=== PATIENT | female | born 1995 | race African-American/Black ===

== ENCOUNTER 2017-10-02 18:57 | Emergency (ER) | payer BC ==
[2017-10-02] MEDS ORDERED: Acetaminophen 325 MG Tab PO ONE (19:44)
--- NOTE | 2017-10-02 19:50 | EDM.PDOC ---
<Stephany El - Last Filed: 10/02/17 19:38> ED HPI GENERAL MEDICAL PROBLEM - General Chief Complaint: Abdominal Pain Stated Complaint: LOWER ABDOMINAL PAIN Time Seen by Provider: 10/02/17 19:45 Source of Information: Reports: Patient History Limitations: Reports: No Limitations - History of Present Illness INITIAL COMMENTS - FREE TEXT/NARRATIVE: Patient comes in today for chief complaint of dysmenorrhea. Patient's hypogastric pain is described as cramping. She has not tried taking any medication or using a heating pad. She normally takes Tylenol for period pain, but did not take any today because the pain was more severe than usual. Nothing makes the pain worse and the pain does not radiated. Today is the first day of her menstrual cycle, her last menstrual cycle was 09/03/17. Her periods typically last five days but for the last two months her periods have lasted for three days. She denies fevers, chills, nausea, vomiting, , or back pain. Onset: Today Duration: Constant Location: Reports: Pelvis Quality: Reports: Other (cramping) Severity: Moderate Improves with: Reports: None Worsens with: Reports: None Associated Symptoms: Denies: Diaphoresis, Nausea/Vomiting Bilateral Lower Abdomen Pain Score (Numeric/FACES): 9 - Related Data Allergies Allergy/AdvReac Type Severity Reaction Status Date / Time No Known Allergies Allergy Verified 10/02/17 19:13 Home Meds: Home Meds . [No Known Home Meds] 10/02/17 [History] Past Medical History - Past Health History Medical/Surgical History: Denies Medical/Surgical History Social & Family History - Family History Family Medical History: Noncontributory - Tobacco Use Smoking Status *Q: Never Smoker - Caffeine Use Caffeine Use: Reports: None - Recreational Drug Use Recreational Drug Use: No ED ROS GENERAL - Review of Systems Constitutional: Reports: No Symptoms Respiratory: Reports: No Symptoms Cardiovascular: Reports: No Symptoms GI/Abdominal: Reports: Abdominal Pain. Denies: Black Stool, Constipation, Diarrhea, Nausea, Vomiting : Reports: Pain. Denies: Dysuria, Flank Pain, Irregular Menses Musculoskeletal: Denies: Back Pain ED EXAM, GI/ABD - Physical Exam Exam Limited By: No Limitations General Appearance: Alert, WD/WN, No Apparent Distress Respiratory/Chest: No Respiratory Distress, Lungs Clear, Normal Breath Sounds, No Accessory Muscle Use Cardiovascular: Normal Peripheral Pulses, Regular Rate, Rhythm, No Edema, No Murmur, No Rub GI/Abdominal Exam: Normal Bowel Sounds, Soft, Non-Tender, No Distention Course - Vital Signs Last Recorded V/S: Last Vital Signs Temp 98.3 F 10/02/17 19:11 Pulse 73 10/02/17 19:11 Resp 18 10/02/17 19:11 BP 134/89 10/02/17 19:11 Pulse Ox 100 10/02/17 19:11 - Orders/Labs/Meds Orders: Active Orders 24 hr Category Date Time Status HCG QUALITATIVE,URINE [URCHEM] Stat Lab 10/02/17 19:54 Ordered UA W/MICROSCOPIC [URIN] Stat Lab 10/02/17 19:54 Ordered Labs: Laboratory Tests 10/02/17 10/02/17 Range/Units 19:54 19:54 Urine Color Yellow (Yellow) Urine Appearance Slt cloudy H (Clear) Urine pH 7.5 (5.0-8.0) Ur Specific [place] 1.025 (1.005-1.030) Urine Protein Negative (Negative) Urine Glucose (UA) Negative (Negative) Urine Ketones Negative (Negative) Urine Occult Blood 2+ H (Negative) Urine Nitrite Negative (Negative) Urine Bilirubin Negative (Negative) Urine Urobilinogen 0.2 (0.2-1.0) Ur Leukocyte Esterase Negative (Negative) Urine RBC 0-5 (0-5) /hpf Urine WBC Not seen (0-5) /hpf Ur Epithelial Cells 0-5 (0-5) /hpf Urine Bacteria Rare (FEW) /hpf Urine Mucus Not seen (FEW) /hpf Urine HCG, Qual Negative (NEGATIVE) Meds: Medications Discontinued Medications Generic Name Dose Route Start Last Admin Trade Name Freq PRN Reason Stop Dose Admin Acetaminophen 975 mg 10/02/17 19:44 10/02/17 19:52 Tylenol PO 10/02/17 19:45 975 mg NOW ONE Administration Ketorolac Tromethamine 60 mg 10/02/17 20:25 10/02/17 21:08 Toradol IM 10/02/17 20:26 60 mg ONETIME ONE Administration Departure - Departure Disposition: Home, Self-Care 01 Clinical Impression: Dysmenorrhea - Discharge Information Instructions: Dysmenorrhea, [id number] Referrals: PCP,None [Primary Care Provider] - Forms: ED Department Discharge, ED Return to Work/School Form Additional Instructions: recommend [id number] ibuprofen or Tylenol as needed for pain relief. Recommend using heat such as a heating right sack for additional relief. Follow-up with your primary care provider as needed for severe menstrual cramps. Please return to ER if your symptoms change or worsen. - My Orders Last 24 Hours: My Active Orders 10/02/17 19:54 HCG QUALITATIVE,URINE [URCHEM] Stat UA W/MICROSCOPIC [URIN] Stat - Assessment/Plan Last 24 Hours: My Active Orders 10/02/17 19:54 HCG QUALITATIVE,URINE [URCHEM] Stat UA W/MICROSCOPIC [URIN] Stat <Nano Khan - Last Filed: 10/02/17 22:21> ED HPI GENERAL MEDICAL PROBLEM - History of Present Illness INITIAL COMMENTS - FREE TEXT/NARRATIVE: I have seen the patient and agree with the HPI as documented by EMIL [place] ED ROS GENERAL - Review of Systems Review Of Systems: See Below ED EXAM, GI/ABD - Physical Exam Exam: See Below GI/Abdominal Exam: Other (no pain at [place] point) Neurological: Alert, Normal Cognition Psychiatric: Normal Affect, Normal Mood Skin Exam: Warm, Dry, Normal Color Course - Re-Assessments/Exams Free Text/Narrative Re-Assessment/Exam: 10/02/17 21:31 I have seen the patient and agree with the HPI, ROS and PE as documented by Stephany STEIN. Checked on the patient. She is doing much better. Will discharge home at this time. Discharge instructions documented. Departure - Departure Time of Disposition: 21:31 Condition: Fair
[2017-10-02] MEDS ORDERED: Ketorolac 60 MG/2 ML SDV IM ONE (20:25)
== END 2017-10-02 21:45 | disposition home or self-care (01) ==
LOC: JD.ED 18:57
DX: N94.6 Dysmenorrhea, unspecified (principal)
CPT/HCPCS: 81001; 81025; 96372; 99284; A9270; J1885